=== PATIENT | male | born 1960 | race Caucasian/White ===

== ENCOUNTER 2019-01-13 02:40 | Outpatient (CLI) | payer BC, SELFPAY ==
[2019-01-13 11:06] LABS: BUN 19 mg/dL (7-18); Calcium 8.8 mg/dL (8.5-10.1); Calculated LDL 128 mg/dL; Chloride 104 mmol/L (98-107); Cholesterol 205 mg/dL (50-200); Glucose 95 mg/dL (70-100); HDL Cholesterol 64 mg/dL (40-60); Potassium 4.8 mmol/L (3.5-5.1); Sodium 142 mmol/L (136-145); Triglyceride 69 mg/dL (30-150)
== END 2019-01-13 03:00 ==
PROVIDERS: PCP Family Medicine; Visit Provider Family Medicine
DX: I10 Essential (primary) hypertension (principal); E78.5 Hyperlipidemia, unspecified
CPT/HCPCS: 36415; 80048; 80061

== ENCOUNTER 2021-07-07 01:45 | Outpatient (CLI) | payer OTHER, SELFPAY ==
--- NOTE | 2021-07-07 | DI.MRI_ITS ---
Exam(s) MR CERVICAL SPINE WO EXAM: MR CERVICAL SPINE WO CLINICAL HISTORY: [id number],NECK PAIN WITH RT RADICULOPATHY,M54.12 TECHNIQUE: Multiplanar multisequence MRI of the cervical spine was performed without intravenous con trast. COMPARISON: There are no prior plain films available at the time of this MRI interpretation. FINDINGS: CERVICOMEDULLARY JUNCTION: Intact with no evidence of cerebellar tonsillar ectopia. No obvious abnor mality of the odontoid process. No evidence of Chiari 1 malformation. CERVICAL SPINAL CORD: There is no abnormal signal in the cervical spinal cord and no evidence of foca l cord atrophy nor focal cord swelling. OSSEOUS:There are no cervical fractures evident. No significant osseous lesions in the cervical vert ebrae. INDIVIDUAL LEVELS: C2-3: No disc herniation nor central canal stenosis. No foraminal stenosis. No facet arthropathy. C3-4: Moderate decreased disc height. Annular bulging with bilateral Luschka joint osteophytes evide nt. On the left side there is also a posterolateral disc protrusion extending posteriorly 4 millimet ers and approximately 5 millimeters wide. This is in the lateral recess. Does not indent the cervic al spinal cord at this level. There is, however, an element of left-sided foraminal stenosis at this level.Indeed, there is bilateral foraminal narrowing due to the disc height loss and annular bulging and bilateral Luschka joint osteophytes. Moderate right-sided facet arthropathy. Mild left-sided f acet joint degenerative changes. C4-5: This level exhibits moderate disc height loss. Right-sided Luschka joint osteophyte. Smaller left-sided Luschka joint osteophyte. No dominant disc herniation at this level. Mild foraminal sten osis on left side. Moderate bilateral facet arthropathy. No prominent central canal stenosis. C5-6: Moderate disc space narrowing. Annular bulging with superimposed posterolateral-lateral right disc protrusion with right-sided foraminal stenosis. Milder left-sided foraminal stenosis. Central canal dimensions are lower normal. Only mild facet degenerative changes bilaterally at this level. Small bilateral Luschka joint osteophytes. Moderate-severe foraminal stenosis evident on the right s ann marie. Milder stenosis on the left side. C6-7: Moderate disc height loss. Annular bulging, but no dominant disc herniation. Central canal di mensions are within normal limits. There are bilateral Luschka joint osteophytes. Bilateral foramin al stenosis. Moderate degenerative changes in both facet joints. C7-T1: No disc herniation nor central canal stenosis. No facet arthropathy.No foraminal stenosis. IMPRESSION: 1. Multilevel chronic degenerative disc disease as described individually above. There are multileve l bilateral Luschka joint osteophytes and multi level foraminal stenosis as described above but witho ut prominent central canal stenosis. 2. At C3-4 level there is also a posterolateral disc herniation as described above at the level of th e lateral recess. 3. Multilevel moderate facet arthropathy. 4. No abnormal findings within the cervical spinal cord. DATA REPOSITORY:
== END 2021-07-07 02:05 ==
PROVIDERS: Visit Provider Physician Assistant Medical
DX: M54.12 Radiculopathy, cervical region (principal); M50.21 Other cervical disc displacement, high cervical region; M50.322 Other cervical disc degeneration at C5-C6 level; M47.22 Other spondylosis with radiculopathy, cervical region
CPT/HCPCS: 72141